=== PATIENT | male | born 1960 | race Caucasian/White ===

== ENCOUNTER 2018-03-01 13:10 | Emergency (ER) | payer OTHER ==
[~2018-03-01] VITALS: Ht 175.3 cm; Wt 72.6 kg
[2018-03-01] MEDS ORDERED: TAMS0.4C (13:50)
[2018-03-01] MEDS ORDERED: FOLIC ACID1 MG (13:50)
[2018-03-01] MEDS ORDERED: SYNTHOID (13:50)
[2018-03-01] MEDS ORDERED: ZANTAC300 MG (13:51)
[2018-03-01] MEDS ORDERED: ENDOCET 10-3251 EACH (13:51)
[2018-03-01] MEDS ORDERED: ADDERALL 20 MG20 MG (13:51)
== END 2018-03-01 16:12 | disposition home or self-care (01) ==
LOC: ER 13:10
DX: S60.221A Contusion of right hand, initial encounter (principal); W22.8XXA Striking against or struck by other objects, initial encounter; Y93.89 Activity, other specified; Y92.038 Other place in apartment as the place of occurrence of the external cause; Y99.8 Other external cause status

== ENCOUNTER 2018-04-27 21:33 | Emergency (ER) | payer OTHER ==
[~2018-04-27] VITALS: Ht 175.3 cm; Wt 72.6 kg
[~2018-04-27 21:33] MED LIST: ADDERALL 20 MG20 MG; ENDOCET 10-3251 EACH; FOLIC ACID1 MG; SYNTHOID; TAMS0.4C; ZANTAC300 MG
== END 2018-04-27 23:53 | disposition home or self-care (01) ==
LOC: ER 21:33
DX: M06.842 Other specified rheumatoid arthritis, left hand (principal); M06.841 Other specified rheumatoid arthritis, right hand

== ENCOUNTER → 2018-10-08 | Emergency (ER) | payer OTHER ==
[~2018-10-08] VITALS: Ht 172.7 cm; Wt 73.5 kg
== END | disposition left against medical advice (07) ==
LOC: ER 15:43
DX: Z53.20 Procedure and treatment not carried out because of patient's decision for unspecified reasons (principal)